=== PATIENT | male | born 1945 | race Asian ===

== ENCOUNTER 2019-06-26 11:11 | Emergency (ER) | payer MEDICARE, OTHER ==
[~2019-06-26] VITALS: Ht 162.6 cm; Wt 71.7 kg
== END 2019-06-26 11:48 | disposition home or self-care (01) ==
LOC: ER 11:11
DX: I10 Essential (primary) hypertension (principal)
CPT/HCPCS: 93005; 99282

== ENCOUNTER 2020-06-23 16:33 | Observation (INO) | payer MEDICARE ==
[~2020-06-23] VITALS: Ht 162.6 cm; Wt 70.8 kg
[2020-06-23 18:08] LABS: BASOPHILS # (AUTO) 0.1 (0.0-0.1); EOSINOPHILS # (AUTO) 0.2 (0.0-0.4); HEMATOCRIT 40.9 % (38.2-49.6); HEMOGLOBIN 13.4 g/dL (14.0-18.0); LYMPHOCYTES % 12.2 % (18.0-39.1); MEAN CORPUSCULAR HEMOGLOBIN 30.8 pg (28-32); MEAN CORPUSCULAR HGB CONC 32.8 g/dL (31-35); MONOCYTES # (AUTO) 0.8 (0.2-0.8); MONOCYTES % 9.7 % (4.4-11.3); NEUTROPHILS # (AUTO) 6.2 (2.1-6.9); NEUTROPHILS % 73.5 % (38.7-80.0); PLATELET COUNT 228 x10e3/uL (140-360); RED BLOOD COUNT 4.35 x10e6/uL (4.3-5.7)
[2020-06-23 18:09] LABS: INR 0.91; PROTHROMBIN TIME 12.8 seconds (11.9-14.5)
[2020-06-23 18:10] LABS: PARTIAL THROMBOPLASTIN TIME 31.5 seconds (23.8-35.5)
[2020-06-23 18:17] LABS: ALBUMIN 3.9 g/dL (3.5-5.0); ALBUMIN/GLOBULIN RATIO 1.1 (0.8-2.0); ANION GAP 14.3 mmol/L (8-16); CALCIUM 9.3 mg/dL (8.4-10.2); CREATININE, SERUM 1.31 mg/dL (0.72-1.25); POTASSIUM 4.3 mmol/L (3.5-5.1)
[2020-06-23 18:24] LABS: CREATINE KINASE MB 0.8 ng/mL (0-5.0)
[2020-06-23 18:53] LABS: CLARITY,URINE CLEAR (CLEAR); COLOR,URINE YELLOW (YELLOW); KETONES,URINE NEGATIVE (NEGATIVE); LEUKOCYTE ESTERASE ,URINE NEGATIVE (NEGATIVE); NITRITE,URINE NEGATIVE (NEGATIVE); PROTEIN,URINE DIPSTICK NEGATIVE (NEGATIVE); URINE UROBILINOGEN 0.2 mg/dL (0.2 - 1)
[2020-06-23 19:06] LABS: RBC,URINE 0-5 /HPF (0-5)
[2020-06-23] MEDS ORDERED: ONDANSETRON HCL INJ 2MG/ML 2ML 2 MG/ML VIAL IV PRN (19:30)
[2020-06-23] MEDS ORDERED: SODIUM CHLORIDE FLUSH 10 ML SYR INJ PRN (19:30)
[2020-06-23] MEDS ORDERED: VERAPAMIL HCL 240 MG TABSR PO SCH (21:00)
[2020-06-23 21:10] VITALS: BP 169/78
[2020-06-23 22:15] VITALS: BP 169/78
[2020-06-23 22:28] VITALS: BP 169/78
[2020-06-23] MEDS ORDERED: SAW PALMETTO 41 EACH PO (23:10)
[2020-06-23] MEDS ORDERED: ASPIRIN81 MG PO (23:10)
[2020-06-23] MEDS ORDERED: VASCEPA1 GM PO (23:10)
[2020-06-23] MEDS ORDERED: ALLOPURINOL300 MG PO (23:10)
[2020-06-23] MEDS ORDERED: LUTEIN40 MG PO (23:10)
[2020-06-23] MEDS ORDERED: MONTELUKAST SOD10 MG PO (23:10)
[2020-06-23] MEDS ORDERED: LIPITOR20 MG PO (23:10)
[2020-06-23] MEDS ORDERED: RED YEAST PO (23:10)
[2020-06-23] MEDS ORDERED: VERAPAMIL ER120 MG PO (23:10)
[2020-06-23 23:57] VITALS: BP 136/59
[2020-06-23 23:58] VITALS: BP 136/59
[2020-06-24] VITALS (8 sets, daily range): BP systolic 126–164; BP diastolic 56–78
[2020-06-24 06:40] LABS: BASOPHILS # (AUTO) 0.1 (0.0-0.1); EOSINOPHILS # (AUTO) 0.4 (0.0-0.4); EOSINOPHILS % 4.7 % (0.0-6.0); HEMATOCRIT 38.7 % (38.2-49.6); HEMOGLOBIN 12.6 g/dL (14.0-18.0); LYMPHOCYTES # (AUTO) 1.3 (1.0-3.2); LYMPHOCYTES % 17.2 % (18.0-39.1); MEAN CORPUSCULAR HEMOGLOBIN 30.8 pg (28-32); MEAN CORPUSCULAR HGB CONC 32.6 g/dL (31-35); MEAN CORPUSCULAR VOLUME 94.6 fL (81-99); MONOCYTES # (AUTO) 0.9 (0.2-0.8); MONOCYTES % 11.8 % (4.4-11.3); NEUTROPHILS % 64.3 % (38.7-80.0); PLATELET COUNT 211 x10e3/uL (140-360); RED BLOOD COUNT 4.09 x10e6/uL (4.3-5.7)
[2020-06-24 07:06] LABS: ALBUMIN 3.6 g/dL (3.5-5.0); ALBUMIN/GLOBULIN RATIO 1.2 (0.8-2.0); ANION GAP 11.3 mmol/L (8-16); CALCIUM 9.2 mg/dL (8.4-10.2); CREATININE, SERUM 1.34 mg/dL (0.72-1.25); POTASSIUM 4.3 mmol/L (3.5-5.1)
[2020-06-24 07:12] LABS: CREATINE KINASE MB 0.6 ng/mL (0-5.0)
[2020-06-24] MEDS ORDERED: DOCUSATE SODIUM 100 MG CAP PO PRN (07:15)
[2020-06-24] MEDS ORDERED: ACETAMINOPHEN 325 MG TAB PO PRN (07:15)
[2020-06-24] MEDS ORDERED: ASPIRIN 81 MG ENTERIC COATED PO SCH (09:00)
[2020-06-24] MEDS ORDERED: ALLOPURINOL 300 MG TAB PO SCH (09:00)
[2020-06-24] MEDS ORDERED: ASPIRIN 81 MG CHEW TAB PO SCH (09:00)
[2020-06-24 13:48] LABS: CREATINE KINASE 89 IU/L (30-200)
[2020-06-24] MEDS ORDERED: MONTELUKAST SODIUM 10 MG TAB PO SCH (18:00)
[2020-06-24] MEDS ORDERED: ATORVASTATIN 20 MG TAB PO SCH (21:00)
== END 2020-06-24 16:04 | disposition home or self-care (01) ==
LOC: ER 17:20 → ERHOLD 19:39 → IMCU 20:30
PROVIDERS: ADMIT Internal Medicine; ATTEND Internal Medicine
DX: R42 Dizziness and giddiness (principal); R07.89 Other chest pain; E78.5 Hyperlipidemia, unspecified; I12.9 Hypertensive chronic kidney disease with stage 1 through stage 4 chronic kidney disease, or unspecified chronic kidney disease; N18.30 Chronic kidney disease, stage 3 unspecified; M10.9 Gout, unspecified; Z20.822 Contact with and (suspected) exposure to COVID-19
CPT/HCPCS: 36415 ×2; 70450; 70544; 70547; 70551; 71045; 80053 ×2; 81001; 82550 ×2; 82553 ×2; 84484 ×2; 84550; 85025 ×2; 85610; 85730; 93005; 93306; 93880; 97161; 99284; G0378 ×2; U0002